=== PATIENT | female | born 2000 | race Caucasian/White ===

== ENCOUNTER → 2018-01-08 | Outpatient (CLI) | payer OTHER ==
[2018-01-08 11:16] LABS: HCT 37.8 % (34.0-46.0); HGB 12.7 gm/dL (11.4-16.0); MCH 30.4 pg (25.0-35.0); MCHC 33.5 g/dL (31.0-37.0); MCV 90.7 fL (80.0-100.0); Mean Platelet Volume 7.6; Platelet Count 268 k/uL (150-450); RBC 4.17 m/uL (3.80-5.40); RDW 13.3 % (11.5-15.5); WBC 8.2 k/uL (4.0-11.0)
--- NOTE | 2018-01-08 11:20 | US ---
EXAMINATION TYPE: Transabdominal DATE OF EXAM: 09/30/17 COMPARISON: NONE CLINICAL HISTORY: Z36 Confirm dates and viability. Dates EXAM PERFORMED: Transabdominal (TA) EXAM MEASUREMENTS: GESTATIONAL AGE / DATING Dates by LMP: (13 weeks/4 days) EDC: 07/12/2018 Dates by Current Scan for: (13 weeks/2 days) EDC: 07/14/2018 MATERNAL ANATOMY Uterus: 12.0 x 1.0 x 1.5 cm Right Ovary: 4.1 x 2.2 x 1.8 cm Left Ovary: 2.9 x 1.8 x 1.1 cm Post CDS / Adnexa: no free fluid Presence of free fluid: no Presence of corpus luteal cyst: right ovarian hypoechoic lesion - 1.7 x 1.4 x 1.2 cm Presence of subchorionic bleed: no GESTATION / SURVEY CRL: 7.1 (13 weeks/2 days) MSD: seen, not measured Yolk Sac (normal less than 6mm): not visualized Heart Rate: 151 bpm Rhythm: Normal IUP: Viable IUP Date of LMP: 10/05/2017, G1 Single live intrauterine gestation is seen as gestational sac and pole are identified. Yolk sac is not clearly seen. No free fluid is seen in pelvic cul-de-sac. Both ovaries are present. Within right ovary there is 1.4 cm isoechoic peripheral lesion felt to refl ect corpus luteal cyst. No suspicious extraovarian adnexal lesions are present. IMPRESSION: Single live intrauterine gestation is confirmed, mean crown-rump length is 7.1 cm corresponding to a 13 week 2 day old fetus.
[2018-01-08 11:22] LABS: Glucose 75 mg/dL (74-99)
[2018-01-08 21:10] LABS: HIV AB P24 Non-Reactive (Non-Reactive); HIV P24 AG Non-Reactive (Non-Reactive)
[2018-01-09 06:55] LABS: Toxoplasma Antibody (IgG) <3.0 IU/mL (<7.2); Toxoplasma Antibody (IgM) <3.0 AU/mL (<8.0)
== END | disposition home or self-care (01) ==
LOC: RADUSWWP 10:38
PROVIDERS: ATTEND Obstetrics & Gynecology
DX: Z36.89 Encounter for other specified antenatal screening (principal); O26.811 Pregnancy related exhaustion and fatigue, first trimester; Z3A.13 13 weeks gestation of pregnancy
CPT/HCPCS: 36415; 76801; 82565; 82947; 85027; 86762; 86777; 86778; 86780; 86850; 86900; 86901; 87340; 87390

== ENCOUNTER → 2018-04-06 | Outpatient (CLI) | payer OTHER ==
[2018-04-06 13:09] VITALS: BP 115/75; PULSE 101; RESP 18; TEMP 98.4
--- NOTE | 2018-04-07 06:21 | P.MSEPDOC ---
Presenting Problems - Arrival Data Date of Arrival on Unit: 04/06/18 Time of Arrival on Unit: 12:10 Mode of Transport: Ambulatory - Complaint OB-Reason for Admission/Chief Complaint: Decreased Movement Medical History - Information : 1 Para: 0 Term: 0 : 0 Abortions: Spontaneous or Elective: 0 Number of Living Children: 0 - Gestational Age Gestational Age by DINO (wks/days): 26 Weeks and 1 Days Review of Systems - Review of Systems Constitutional: No problems Breast: No problems ENT: No problems Cardiovascular: No problems Respiratory: No problems Gastrointestinal: No problems Genitourinary: No problems Musculoskeletal: No problems Neurological: No problems Skin: No problems Vital Signs - Temperature Temperature: 98.4 F Temperature Source: Oral - Pulse Right Brachial Pulse Rate: 101 Pulse Assessment Method: Automatic Cuff - Respirations Respiratory Rate: 18 Oxygen Delivery Method: Room Air O2 Sat by Pulse Oximetry: 99 - Blood Pressure Right Arm Blood Pressure: 115/75 Blood Pressure Mean: 88 Blood Pressure Source: Automatic Cuff Medical Screen Scoring (Pre) - Cervical Exam Dilation: Exam Deferred Effacement: Exam Deferred - Uterine Contractions Frequency: N/A Duration: N/A Intensity: N/A - Maternal Vital Signs Maternal Temperature: N/A Maternal Blood Pressure: N/A Signs of Preeclampsia: N/A Maternal Respirations: N/A - Pain Assessment Pain Scale Used: Numeric (1 - 10) Pain Intensity: 0 Pain Management Goal: 0 - Maternal Trauma Maternal Trauma: N/A - Assessment Baseline FHR: 130 Heart Rate - NICHD Category: Category I (Normal) = 0 Position: N/A Station: N/A - Total Score Total Score (Pre): 0 - Level of Risk Level of Risk: Low (0-5) Physician Notification (Pre) - Physician Notified Physician Notified Date: 04/06/18 Physician Notified Time: 12:40 Physician/Practitioner Notifed:: Skip Spoke With: Skip Cardoza Order Received: Yes - Notification Comment Comment: Order received to discharge home. Disposition - Disposition OB Disposition: Physician follow up in office, Discharge to home, Written follow up instructions reviewed Discharge Date: 04/06/18 Discharge Time: 12:51 I agree with the RN Medical Screening Exam: Yes Risk & Benefit of care provided described in d/c instruction: Yes Diagnosis: DECREASED MOVEMENTS, SECOND TRIMESTER, FETUS 1
== END | disposition home or self-care (01) ==
LOC: FBPOP 12:12
PROVIDERS: ATTEND Obstetrics & Gynecology
DX: O36.8121 Decreased fetal movements, second trimester, fetus 1 (principal); Z3A.26 26 weeks gestation of pregnancy
CPT/HCPCS: 99213

== ENCOUNTER 2018-07-02 00:11 | Outpatient (CLI) | payer OTHER ==
[2018-07-02 01:26] VITALS: RESP 16; TEMP 96.7
[2018-07-02 03:15] VITALS: BP 123/76; PULSE 90
--- NOTE | 2018-07-02 06:07 | P.MSEPDOC ---
Presenting Problems - Arrival Data Date of Arrival on Unit: 07/02/18 Time of Arrival on Unit: 00:11 Mode of Transport: Ambulatory - Complaint OB-Reason for Admission/Chief Complaint: Possible Onset of Labor Medical History - Information : 1 Para: 0 Term: 0 : 0 Abortions: Spontaneous or Elective: 0 Number of Living Children: 0 - Gestational Age Gestational Age by DINO (wks/days): 38 Weeks and 4 Days Review of Systems - Review of Systems Constitutional: No problems Breast: No problems ENT: No problems Cardiovascular: No problems Respiratory: No problems Gastrointestinal: No problems Genitourinary: No problems Musculoskeletal: No problems Neurological: No problems Skin: No problems Vital Signs - Temperature Temperature: 96.7 F Temperature Source: Temporal Artery Scan - Pulse Left Pulse Rate: 90 Pulse Assessment Method: Pulse Oximetry - Respirations Respiratory Rate: 16 Oxygen Delivery Method: Room Air - Blood Pressure Right Arm Blood Pressure: 123/76 Blood Pressure Mean: 91 Blood Pressure Source: Automatic Cuff Medical Screen Scoring (Pre) - Cervical Exam Dilation: 4-7 cm = 2 Effacement: Exam Deferred Membranes: Intact - Uterine Contractions Frequency: N/A Duration: N/A Intensity: N/A - Maternal Vital Signs Maternal Temperature: N/A Maternal Blood Pressure: N/A Maternal Respirations: N/A - Pain Assessment Pain Location and Character: Back Pain Scale Used: Numeric (1 - 10) Pain Intensity: 5 Pain Management Goal: 0 Pain Description: *Acute, Sharp Pain Frequency: Intermittent Pain Duration Units: Minutes Pain Behavior: Vocalization - Maternal Trauma Maternal Trauma: N/A - Assessment Baseline FHR: 125 Heart Rate - NICHD Category: Category I (Normal) = 0 NST: Reactive Position: N/A Station: N/A - Total Score Total Score (Pre): 2 - Level of Risk Level of Risk: Low (0-5) Physician Notification (Pre) - Physician Notified Physician Notified Date: 07/02/18 Physician Notified Time: 01:17 Physician/Practitioner Notifed:: Dr. Valdivia Spoke With: Dr. Valdivia New Order Received: Yes (continue monitoring and recheck in hour) Medical Screen Scoring (Post) - Cervical Exam Dilation: 4-7 cm = 2 Effacement: Exam Deferred Membranes: Intact - Uterine Contractions Frequency: N/A Duration: N/A Intensity: N/A - Maternal Vital Signs Maternal Temperature: N/A Maternal Blood Pressure: N/A Signs of Preeclampsia: N/A Maternal Respirations: N/A - Pain Assessment Pain Location and Character: Back, Abdomen Pain Scale Used: Numeric (1 - 10) Pain Intensity: 6 Pain Management Goal: .0 Pain Description: *Acute, Sharp Pain Frequency: Intermittent Pain Duration Units: Minutes Pain Behavior: Vocalization - Total Score Total Score (Post): 2 - Post Treatment Level of Risk Post Treatment Level of Risk: Low (0-5) Physician Notification (Post) - Physician Notified Physician Notified Date: 07/02/18 Physician Notified Time: 02:32 Physician/Practitioner Notified:: Dr. Valdivia Spoke With: Dr. Valdivia New Order Received: Yes (Discharge home with instructions.) Disposition - Disposition OB Disposition: Discharge to home Discharge Date: 07/02/18 Discharge Time: 02:32 I agree with the RN Medical Screening Exam: Yes Risk & Benefit of care provided described in d/c instruction: Yes Diagnosis: FALSE LABOR AT OR AFTER 37 COMPLETED WEEKS OF GESTATION
== END 2018-07-02 02:30 | disposition home or self-care (01) ==
LOC: FBPOP 00:11
PROVIDERS: ATTEND Obstetrics & Gynecology
DX: O47.1 False labor at or after 37 completed weeks of gestation (principal); Z3A.38 38 weeks gestation of pregnancy
CPT/HCPCS: 59025; G0463; 99213

== ENCOUNTER 2018-07-02 13:49 | Outpatient (CLI) | payer OTHER ==
[2018-07-02 15:51] VITALS: BP 131/80; PULSE 111; RESP 16; TEMP 98.9
--- NOTE | 2018-07-07 18:31 | P.MSEPDOC ---
Presenting Problems - Arrival Data Date of Arrival on Unit: 07/02/18 Time of Arrival on Unit: 14:56 Mode of Transport: Ambulatory - Complaint OB-Reason for Admission/Chief Complaint: Possible Onset of Labor Medical History - Information : 1 Para: 0 Term: 0 : 0 Abortions: Spontaneous or Elective: 0 Number of Living Children: 0 - Gestational Age Gestational Age by DINO (wks/days): 38 Weeks and 4 Days Review of Systems - Review of Systems Constitutional: No problems Breast: No problems ENT: No problems Cardiovascular: No problems Respiratory: No problems Gastrointestinal: No problems Genitourinary: No problems Musculoskeletal: No problems Neurological: No problems Skin: No problems Vital Signs - Temperature Temperature: 98.9 F Temperature Source: Temporal Artery Scan - Pulse Apical Pulse Rate: 111 Pulse Assessment Method: Automatic Cuff - Respirations Respiratory Rate: 16 Oxygen Delivery Method: Room Air - Blood Pressure Right Arm Blood Pressure: 131/80 Blood Pressure Mean: 97 Blood Pressure Source: Automatic Cuff Medical Screen Scoring (Pre) - Cervical Exam Dilation: 4-7 cm = 2 Effacement: Exam Deferred Membranes: Intact - Uterine Contractions Frequency: > 5 minutes apart = 1 Duration: N/A Intensity: N/A - Maternal Vital Signs Maternal Temperature: N/A Maternal Blood Pressure: N/A Signs of Preeclampsia: N/A Maternal Respirations: N/A - Pain Assessment Pain Location and Character: Back, Abdomen Pain Scale Used: Numeric (1 - 10) Pain Intensity: 5 Pain Description: Aching, Burning, Cramping Pain Frequency: Intermittent Pain Behavior: Vocalization Pain Aggravating Factors: Contractions, Position Non-Pharmacological Interventions: Distraction - Maternal Trauma Maternal Trauma: N/A - Assessment Baseline FHR: 130 Heart Rate - NICHD Category: Category I (Normal) = 0 NST: Reactive Position: N/A Station: N/A - Total Score Total Score (Pre): 3 - Level of Risk Level of Risk: Low (0-5) Physician Notification (Pre) - Physician Notified Physician Notified Date: 07/02/18 Physician Notified Time: 15:20 Physician/Practitioner Notifed:: cody Spoke With: cody New Order Received: Yes (evaluate. let walk recheck cervix at 4pm) - Notification Comment Comment: cervix remains unchanged. home with instructions. Disposition - Disposition OB Disposition: Discharge to home, Written follow up instructions reviewed Discharge Date: 07/02/18 Discharge Time: 16:45 I agree with the RN Medical Screening Exam: Yes Risk & Benefit of care provided described in d/c instruction: Yes Diagnosis: FALSE LABOR AT OR AFTER 37 COMPLETED WEEKS OF GESTATION
== END 2018-07-02 16:45 | disposition home or self-care (01) ==
LOC: FBPOP 13:49
PROVIDERS: ATTEND Obstetrics & Gynecology
DX: O47.1 False labor at or after 37 completed weeks of gestation (principal); Z3A.38 38 weeks gestation of pregnancy
CPT/HCPCS: 59025; G0463; 99213

== ENCOUNTER 2018-07-06 16:48 | Inpatient (IN) | payer OTHER ==
[2018-07-06] MEDS: LACTATED RINGERS 1,000 ML IV SCH ×5 (19:28→23:14)
[2018-07-06] MEDS ORDERED: CARBOPROST TROMETHAMINE 250 MCG/ML 1 ML AMP IM PRN (20:22)
[2018-07-06] MEDS ORDERED: LIDOCAINE 0.5% (PF) 5 MG/ML (50 ML SDV) SQ PRN (20:22)
[2018-07-06] MEDS ORDERED: OXYTOCIN 10 UNIT/ML 1 ML VIAL IM PRN (20:22)
[2018-07-06] MEDS ORDERED: TERBUTALINE 1 MG/ML VIAL SQ PRN (20:22)
[2018-07-06] MEDS ORDERED: METHYLERGONOVINE 0.2 MG/ML 1 ML AMP IM PRN (20:22)
[2018-07-06 20:55] VITALS: BMI 30.9
[2018-07-06 20:59] LABS: Basophils % (A) 0 %; Eosinophils % (A) 0 %; HCT 34.2 % (34.0-46.0); HGB 11.4 gm/dL (11.4-16.0); Lymphocytes # (A) 1.4 k/uL (1.0-4.8); Lymphocytes % (A) 14 %; MCH 28.7 pg (25.0-35.0); MCHC 33.3 g/dL (31.0-37.0); MCV 86.2 fL (80.0-100.0); Mean Platelet Volume 9.4; Monocytes # (A) 0.4 k/uL (0-1.0); Monocytes % (A) 4 %; Neutrophils # (A) 8.1 k/uL (1.3-7.7); Neutrophils % (A) 81 %; Platelet Count 231 k/uL (150-450); RBC 3.96 m/uL (3.80-5.40); RDW 14.9 % (11.5-15.5)
[2018-07-06] MEDS ORDERED: OXYTOCIN 20 UNITS/1000 ML NS 1,000 ML IV SCH (21:30)
--- NOTE | 2018-07-06 22:31 | P.HPOB ---
History of Present Illness H&P Date: 07/06/18 Chief Complaint: Contractions This is a 17-year-old female 1 para 0 with an estimated date of confinement of 07/12/2018, estimated gestational age of 39 and one sevenths weeks, who presents to labor and delivery with complaints of contractions that became stronger today. care has been with Dr. Valdivia and has been uncomplicated per patient. She denies any rupture of membranes. She has been feeling good movement. labs: GC/chlamydia-negative Hepatitis B surface antigen-nonreactive Rubella-nonimmune Syphilis antibody-nonreactive Random glucose-75 Hemoglobin-12.7 Blood type-A+ Antibody screen-negative One hour Glucola-77 Group B streptococcus-negative Obstetrical history: . Gynecologic history: No history of STDs. Social history: She is single. 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 Review of Systems Constitutional: Denies chills, Denies fever Eyes: denies blurred vision, denies pain Ears, nose, mouth and throat: Denies headache, Denies sore throat Cardiovascular: Denies chest pain, Denies shortness of breath Respiratory: Denies cough Gastrointestinal: Reports abdominal pain Genitourinary: Reports pelvic pain, Reports Musculoskeletal: Reports low back pain Integumentary: Denies pruritus, Denies rash Neurological: Denies numbness, Denies weakness Psychiatric: Denies anxiety, Denies depression Past Medical History Past Medical History: No Reported History History of Any Multi-Drug Resistant Organisms: None Reported Past Surgical History: No Surgical Hx Reported Past Anesthesia/Blood Transfusion Reactions: No Reported Reaction Past Psychological History: No Psychological Hx Reported Smoking Status: Never smoker Past Alcohol Use History: None Reported Past Drug Use History: None Reported - Past Family History Mother Family Medical History: No Reported History Medications and Allergies Home Medications Medication Instructions Recorded Confirmed Type Pnv No.95/Ferrous Fum/Folic AC 1 tab PO DAILY 07/02/18 07/06/18 History [ Multivitamin Tablet] Allergies Allergy/AdvReac Type Severity Reaction Status Date / Time Penicillins Allergy Unknown Verified 07/06/18 17:15 Childhood Exam Osteopathic Statement: *. No significant issues noted on an osteopathic structural exam other than those noted in the History and Physical/Consult. Vital Signs Temp Pulse Resp BP 07/06/18 20:21 97.0 F L 92 16 127/83 07/06/18 20:10 97.0 F L 92 16 127/83 07/06/18 17:24 97.6 F 120 H 16 132/86 Intake and Output 07/06/18 07/06/18 07/06/18 06:59 14:59 22:59 Other: Weight 79.379 kg HEENT: Heart: Regular rate and rhythm Lungs: Clear to auscultation bilaterally Abdomen: Cervix: Initially was 5 cm on admission to triage. She did make a half a centimeter change per hour until she was 6-1/2 cm. At this point she was considered in active labor and was admitted. Cervix was 80% effaced and -2 station. heart tones: Reactive Contractions: Irregular anywhere from 2-6 minutes apart Extremities: Negative Homans Results Result Diagrams: 07/06/18 19:30 Abnormal Lab Results - Last 24 Hours (Table) 07/06/18 Range/Units 19:30 Neutrophils # 8.1 H (1.3-7.7) k/uL Assessment and Plan (1) 39 weeks gestation of Current Visit: Yes Status: Acute Code(s): Z3A.39 - 39 WEEKS GESTATION OF SNOMED Code(s): 24843752 Plan: Admission for early active labor. Oxytocin augmentation of labor if necessary. Epidural anesthesia if desired.
[2018-07-06] MEDS ORDERED: SODIUM CHLORIDE 0.9% 100 ML BAG ONE (22:45)
[2018-07-06] MEDS ORDERED: fentaNYL (PF) 50 MCG/ML 5 ML AMP ONE (22:45)
[2018-07-06] MEDS ORDERED: ROPIVACAINE 5MG/ML 20ML VIAL ONE (22:45)
[2018-07-07] MEDS ORDERED: diphenhydrAMINE 50 MG/ML 1 ML VIAL IVP PRN ×2 (04:24)
[2018-07-07] MEDS ORDERED: OXYTOCIN 20 UNITS/1000 ML NS 1,000 ML IV SCH (04:24)
[2018-07-07] MEDS ORDERED: BENZOCAINE/MENTHOL SPRAY 1 GM/SPRAY AEROSOL TOPICAL PRN (04:24)
[2018-07-07] MEDS ORDERED: MEASLES-MUMPS-RUBELLA VACC/PF 12,500 UNIT/0.5 ML VIAL SQ ONE (04:24)
[2018-07-07] MEDS ORDERED: diphenhydrAMINE 25 MG CAP PO PRN (04:24)
[2018-07-07] MEDS ORDERED: LANOLIN CREAM 5 GM TUBE TOPICAL PRN (04:24)
[2018-07-07] MEDS ORDERED: diphenhydrAMINE 50 MG CAP PO PRN (04:24)
[2018-07-07] MEDS ORDERED: SIMETHICONE 80 MG CHEWABLE PO PRN (04:24)
[2018-07-07] MEDS ORDERED: WITCH HAZEL 1 EACH MED..PAD TOPICAL PRN (04:24)
[2018-07-07] MEDS ORDERED: ACETAMINOPHEN TAB 325 MG TAB PO PRN (04:24)
[2018-07-07] MEDS ORDERED: HYDROCORTISONE 2.5% RECTAL CREAM 30 GM TUBE RECTAL PRN (04:24)
[2018-07-07] MEDS ORDERED: ZOLPIDEM 5 MG TAB PO PRN (04:24)
--- NOTE | 2018-07-07 04:33 | P.PROBDLV ---
Vaginal Delivery Note - . Vaginal Delivery Note: The patient slowly progressed to complete dilation after oxytocin augmentation of labor and artificial rupture membranes with clear fluid noted. She did receive Epidural anesthesia. Once reaching complete dilation, she was unable to push very effectively and therefore her epidural was turned off and she labored down. When she had a strong urge to push, she began pushing. Infant's head came to a crown. With one further push, the infant's head delivered across the perineum followed by the anterior shoulder. Nuchal times one was reduced around the infant's head and with one further push the remainder the easily delivered and was placed on mother's abdomen. Nose and mouth were bulb suctioned after delivery. Cord was clamped and cut. A viable male infant was noted with scores of 9 at 1 minute and 9 at 5 minutes and infant weight of 7 lbs. 3 oz. Placenta delivered shortly thereafter, intact, with a three-vessel cord. Uterus contracted well after oxytocin was given and uterine massage was given. Inspection of the perineum revealed a partial third- degree laceration. This area was anesthetized with 1% lidocaine and then sutured with 3-0 and 2-0 Vicryl suture in the usual multilayer fashion. Estimated blood loss is approximately 200 mL's. Both mother and are in stable condition at this time.
--- NOTE | 2018-07-07 04:33 | P.MSEPDOC ---
Presenting Problems - Arrival Data Date of Arrival on Unit: 07/06/18 Time of Arrival on Unit: 20:10 Mode of Transport: Ambulatory - Complaint OB-Reason for Admission/Chief Complaint: Possible Onset of Labor Medical History - Information : 1 Para: 0 Term: 0 : 0 Abortions: Spontaneous or Elective: 0 Number of Living Children: 0 - Gestational Age Gestational Age by DINO (wks/days): 39 Weeks and 1 Days Review of Systems - Review of Systems Constitutional: No problems Breast: No problems ENT: No problems Cardiovascular: No problems Respiratory: No problems Gastrointestinal: No problems Genitourinary: No problems Musculoskeletal: No problems Neurological: No problems Skin: No problems Vital Signs - Temperature Temperature: 97.0 F Temperature Source: Temporal Artery Scan - Pulse Right Brachial Pulse Rate: 92 Pulse Assessment Method: Automatic Cuff - Respirations Respiratory Rate: 16 Oxygen Delivery Method: Room Air - Blood Pressure Right Arm Blood Pressure: 127/83 Blood Pressure Mean: 97 Blood Pressure Source: Automatic Cuff Medical Screen Scoring (Pre) - Cervical Exam Dilation: 4-7 cm = 2 Effacement: More than 50% = 2 Membranes: Intact - Uterine Contractions Frequency: > 5 minutes apart = 1 Duration: > 40 seconds = 2 Intensity: N/A - Maternal Vital Signs Maternal Temperature: N/A Maternal Blood Pressure: N/A Signs of Preeclampsia: N/A Maternal Respirations: N/A - Pain Assessment Pain Location and Character: Abdomen Pain Scale Used: Numeric (1 - 10) Pain Intensity: 8 Pain Management Goal: 4 Pain Description: *Acute Pain Radiation Location: na Pain Frequency: Intermittent Pain Duration: 2 Pain Duration Units: Minutes Pain Behavior: Vocalization Pain Aggravating Factors: None - Maternal Trauma Maternal Trauma: N/A - Assessment Baseline FHR: 145 Heart Rate - NICHD Category: Category I (Normal) = 0 NST: Reactive Position: N/A Station: N/A - Total Score Total Score (Pre): 7 - Level of Risk Level of Risk: Medium (6-9) Physician Notification (Pre) - Physician Notified Physician Notified Date: 07/06/18 Physician Notified Time: 17:20 Physician/Practitioner Notifed:: Dr. Hernandez Spoke With: Dr. Hernandez New Order Received: Yes - Notification Comment Comment: recheck in one hour Medical Screen Scoring (Post) - Cervical Exam Dilation: 4-7 cm = 2 Effacement: More than 50% = 2 Membranes: Intact - Uterine Contractions Frequency: > or = 36 weeks =2 Duration: > 40 seconds = 2 Intensity: N/A - Maternal Vital Signs Maternal Temperature: N/A Maternal Blood Pressure: N/A Signs of Preeclampsia: N/A Maternal Respirations: N/A - Maternal Trauma Maternal Trauma: N/A - Assessment Heart Rate: 135 Heart Rate - NICHD Category: Category I (Normal) = 0 NST: Reactive Position: N/A Station: N/A - Total Score Total Score (Post): 8 - Post Treatment Level of Risk Post Treatment Level of Risk: Medium (6-9) Physician Notification (Post) - Physician Notified Physician Notified Date: 07/06/18 Physician Notified Time: 20:10 Physician/Practitioner Notified:: Dr. Hernandez New Order Received: Yes - Notification Comment Comment: Patient admitted for labor at this time, patient may have an epidural or stadol for pain if and when wanted, physician would like patient to be rechecked in one hour and called back with status. Disposition - Disposition OB Disposition: Admit Transferred to:: [address] I agree with the RN Medical Screening Exam: Yes Risk & Benefit of care provided described in d/c instruction: Yes Diagnosis: ENCOUNTER FOR FULL-TERM UNCOMPLICATED DELIVERY
[2018-07-07] MEDS: IBUPROFEN 600 MG TAB PO PRN ×3 (04:37→19:21)
[2018-07-07 05:45] LABS: Basophils % (A) 0 %; Eosinophils % (A) 0 %; HCT 29.1 % (34.0-46.0); Lymphocytes # (A) 0.8 k/uL (1.0-4.8); Lymphocytes % (A) 4 %; MCH 28.7 pg (25.0-35.0); MCHC 33.1 g/dL (31.0-37.0); MCV 86.7 fL (80.0-100.0); Mean Platelet Volume 9.9; Monocytes # (A) 0.8 k/uL (0-1.0); Monocytes % (A) 4 %; Neutrophils # (A) 17.8 k/uL (1.3-7.7); Neutrophils % (A) 91 %; Platelet Count 218 k/uL (150-450); RBC 3.35 m/uL (3.80-5.40); RDW 14.9 % (11.5-15.5); WBC 19.5 k/uL (4.0-11.0)
[2018-07-07 05:50] LABS: HGB 9.6 gm/dL (11.4-16.0)
[2018-07-07] MEDS: SENNOSIDES-DOCUSATE SODIUM 1 EACH TAB PO SCH ×2 (07:54→19:21)
--- NOTE | 2018-07-08 06:52 | P.PNOBGVD ---
Subjective - Subjective Patient reports: Reports appetite normal, Reports voiding normally, Reports pain well controlled, Reports ambulating normally : doing well Objective - Latest Vital Signs Latest vital signs: Vital Signs Temp Pulse Resp BP Pulse Ox 07/07/18 15:30 97.7 F 94 16 122/72 07/07/18 12:00 98.8 F 89 16 110/66 07/07/18 08:00 98.6 F 103 H 16 109/61 96 Intake and Output 07/07/18 07/07/18 07/08/18 14:59 22:59 06:59 Intake Total 400 Balance 400 Intake: Intake, IV Titration 400 Amount Oxytocin 20 Units/1000 ml 400 Ns 1,000 ml @ Per Protocol IV .Q0M [facility] Rx#: [id number] Other: # Voids 1 2 - Exam Lungs: bilateral: normal Chest: Normal S1, Normal S2 Extremities: Present: normal Abdomen: Present: normal appearance, soft Uterus: Present: normal, firm Assessment and Plan Assessment: Post day #1. Patient is resting without complaints wishes to go home. Vital signs are stable she's afebrile. Uterus is firm nontender and she is having normal lochia. My impression this is a normal course. Plan is to continue routine care discharge home later today.
--- NOTE | 2018-07-08 06:56 | P.DS ---
Providers Date of admission: 07/06/18 20:12 Expected date of discharge: 07/08/18 Attending physician: Sathish Valdivia Primary care physician: Sathish Valdivia [facility] Course: Please see dictated H&P for intimate details of this patient's admission. Brief summary is a pleasant 17-year-old 1 para 0 female 39 weeks gestation who is admitted to labor and delivery in active labor. Patient's subsequent goes on have a vaginal delivery viable male infant. Please see dictated delivery note. day #1 patient is without complaints wishes to go home. Patient's felt be stable for discharge home follow up with me in 6 weeks. Procedures: Normal spontaneous vaginal delivery Patient Condition at Discharge: Good Plan - Discharge Summary New Discharge Prescriptions: New Ibuprofen [Motrin] 600 mg PO Q6HR PRN #40 tab PRN Reason: Mild Pain Or Fever >= 100.5 No Action Pnv No.95/Ferrous Fum/Folic AC [ Multivitamin Tablet] 1 tab PO DAILY Discharge Medication List Pnv No.95/Ferrous Fum/Folic AC [ Multivitamin Tablet] 1 tab PO DAILY 09/15 [History] Ibuprofen [Motrin] 600 mg PO Q6HR PRN #40 tab 07/08/18 [Rx] Follow up Appointment(s)/Referral(s): Sathish Valdivia MD [Primary Care Provider] - 08/18/18 3:15 pm Patient Instructions/Handouts: Vaginal Delivery (DC) Activity/Diet/Wound Care/Special Instructions: No intercourse or anything per vagina for 6 weeks. Please call if any fever, chills, excessive vaginal bleeding, and/or abdominal pain. Discharge Disposition: HOME SELF-CARE
[2018-07-08] MEDS: IBUPROFEN 600 MG TAB PO PRN (07:43)
[2018-07-08] MEDS: SENNOSIDES-DOCUSATE SODIUM 1 EACH TAB PO SCH (07:43)
[2018-07-08 09:11] VITALS: BP 121/69; PULSE 95; RESP 18; TEMP 98.3
--- NOTE | 2018-07-10 08:12 | CDI ---
Documentation Clarification Form Date: 07/10/18 From: Bonnie Dhruv Gaby Norris, Academic Adviser Hours-8:30 am & 5 pm Zakiya Admit Date: 07/06/2018 8:12:00 PM Patient Name: Margarita Tavares Visit Number: [id number] Discharge Date: 07/08/2018 11:38:00 AM ATTENTION: The Clinical Documentation Specialists (CDI) and [facility] Coding Staff appreciate your assistance in clarifying documentation. Please respond to the clarification below the line at the bottom and electronically sign. The CDI & [facility] Coding staff will review the response and follow-up if needed. Please note: Queries are made part of the Legal Health Record. If you have any questions, please contact the author of this message via ITS. Dr. Ying Hernandez A woman, 39 weeks gestation admitted in active labor. She had a manually assisted vaginal delivery of a normal . The patient suffered a partial third degree laceration which was repaired with 3-0 and 2-0 Vicryl suture in the usual multilayer fashion. In your professional opinion, did the third degree laceration involve: *Injury to perineal skin only *Injury to perineum involving perineal muscles but not involving anal sphincter *Injury to perineum involving anal sphincter complex *Less than 50% of external anal sphincter (EAS) thickness torn *More than 50% of external anal sphincter (EAS) thickness torn *Both external anal sphincter (EAS) and internal anal sphincter (IAS) torn *Injury to perineum involving anal sphincter complex (external anal sphincter ( EAS) and internal anal sphincter (IAS) and anal epithelium *Other, please specify *Clinically unable to determine _ The injury involved the perineal muscles but does not involve the anal sphincter and involve less than 50% of the anal sphincter muscle. MTDD
== END 2018-07-08 11:38 | disposition home or self-care (01) | DRG 768 ==
LOC: FBPOP 16:48 → 4FBP 20:12
PROVIDERS: ADMIT Obstetrics & Gynecology; ATTEND Obstetrics & Gynecology
PROC: 00HU33Z Insertion of Infusion Device into Spinal Canal, Percutaneous Approach (ICD-10-PCS; 2018-07-06)
PROC: 3E0R3BZ Introduction of Anesthetic Agent into Spinal Canal, Percutaneous Approach (ICD-10-PCS; 2018-07-06)
PROC: 10E0XZZ Delivery of Products of Conception, External Approach (ICD-10-PCS; principal; 2018-07-07)
PROC: 3E0134Z Introduction of Serum, Toxoid and Vaccine into Subcutaneous Tissue, Percutaneous Approach (ICD-10-PCS; 2018-07-07)
PROC: 0DQR0ZZ Repair Anal Sphincter, Open Approach (ICD-10-PCS; 2018-07-07)
DX: O69.81X0 Labor and delivery complicated by cord around neck, without compression, not applicable or unspecified (principal); Z37.0 Single live birth; O70.21 Third degree perineal laceration during delivery, IIIa; Z3A.39 39 weeks gestation of pregnancy; Z23 Encounter for immunization; Z79.899 Other long term (current) drug therapy; Z88.0 Allergy status to penicillin
CPT/HCPCS: 59025; 85025; 86850; 86900; 86901; 90471; 90707; 99213

== ENCOUNTER → 2019-03-10 | Outpatient (CLI) | payer OTHER ==
--- NOTE | 2019-03-10 11:55 | US ---
EXAM PERFORMED: US OB <= 14 WEEKS EXAMINATION TYPE: Transabdominal DATE OF EXAM: 03/10/2019 11:07 AM COMPARISON: NONE GESTATIONAL AGE / DATING CLINICAL HISTORY: Z36 CONFIRM DATES. EXAM MEASUREMENTS: GESTATIONAL AGE / DATING Physician Established: Not yet established Dates by LMP: (13 weeks/3 days) EDC: 09/11/2018 Dates by First Scan: no prior Dates by Current Scan for: iup (13 weeks/0 days) EDC: 09/15/2019 MATERNAL ANATOMY Uterus: 10.9 x 7.7 x 9.7 cm Right Ovary: 2.9 x 1.4 x 2.1 cm Left Ovary: 2.2 x 1.3 x 2.3 cm Post CDS / Adnexa: wnl Presence of free fluid: no Presence of corpus luteal cyst: no Presence of subchorionic bleed: no GESTATION / SURVEY CRL: 6.2 (12 weeks/4 days) BPD: 2.1 (13 weeks/3 days) Heart Rate: 143 bpm Rhythm: Normal IUP: Live IUP Date of LMP: 12/06/2018 IMPRESSION: Single live intrauterine has a calculated sonographic age of 13 weeks and 0 day s and estimated date of delivery of 09/15/2019, concordant with menstrual age.
[2019-03-10 12:00] LABS: HCT 38.7 % (34.0-46.0); HGB 12.9 gm/dL (11.4-16.0); MCHC 33.3 g/dL (31.0-37.0); MCV 87.1 fL (80.0-100.0); Mean Platelet Volume 7.4; Platelet Count 297 k/uL (150-450); RBC 4.44 m/uL (3.80-5.40); RDW 14.3 % (11.5-15.5); WBC 8.4 k/uL (4.0-11.0)
[2019-03-10 12:10] LABS: African American GFR (CKD) >90 (>60 ml/min/1.73 sqM); Glucose 76 mg/dL (74-99)
[2019-03-10 17:43] LABS: HIV 1 AB Non-Reactive (Non-Reactive); HIV AB P24 Non-Reactive (Non-Reactive); HIV P24 AG Non-Reactive (Non-Reactive)
== END | disposition home or self-care (01) ==
LOC: RADUSWWP 10:45
PROVIDERS: ATTEND Obstetrics & Gynecology
DX: Z34.81 Encounter for supervision of other normal pregnancy, first trimester (principal); Z3A.13 13 weeks gestation of pregnancy
CPT/HCPCS: 36415; 76801; 82565; 82947; 85027; 86762; 86780; 86850; 86900; 86901; 87340; 87390

== ENCOUNTER 2019-06-09 08:51 | Outpatient (CLI) | payer OTHER ==
[2019-06-09 11:50] VITALS: BP 129/67; PULSE 110; RESP 16; TEMP 97.4
--- NOTE | 2019-06-10 06:07 | P.MSEPDOC ---
Presenting Problems - Arrival Data Date of Arrival on Unit: 06/09/19 Time of Arrival on Unit: 08:50 Mode of Transport: Ambulatory - Complaint OB-Reason for Admission/Chief Complaint: Rule Out SROM Medical History - Information : 2 Para: 1 Term: 1 : 0 Abortions: Spontaneous or Elective: 0 Number of Living Children: 1 - Gestational Age Gestational Age by DINO (wks/days): 26 Weeks and 3 Days Review of Systems - Review of Systems Constitutional: No problems Breast: No problems ENT: No problems Cardiovascular: No problems Respiratory: No problems Gastrointestinal: No problems Genitourinary: No problems Musculoskeletal: No problems Neurological: No problems Skin: No problems Vital Signs - Temperature Temperature: 97.4 F Temperature Source: Tympanic - Pulse Right Brachial Pulse Rate: 110 Pulse Assessment Method: Automatic Cuff - Respirations Respiratory Rate: 16 Oxygen Delivery Method: Room Air - Blood Pressure Right Arm Blood Pressure: 129/67 Blood Pressure Mean: 87 Blood Pressure Source: Automatic Cuff Medical Screen Scoring (Pre) - Cervical Exam Dilation: Exam Deferred Effacement: Exam Deferred Membranes: Intact - Uterine Contractions Frequency: N/A Duration: N/A Intensity: N/A - Maternal Vital Signs Maternal Temperature: N/A Maternal Blood Pressure: N/A Signs of Preeclampsia: N/A Maternal Respirations: N/A - Maternal Trauma Maternal Trauma: N/A - Assessment - Baby A Baseline FHR: 135 Heart Rate - NICHD Category: Category I (Normal) = 0 NST: Reactive Position: N/A Station: N/A - Total Score - Baby A Total Score - Baby A: 0 - Total Score - Baby B Total Score - Baby B: 0 - Total Score - Baby C Total Score - Baby C: 0 - Level of Risk - Baby A Level of Risk - Baby A: Low (0-5) - Level of Risk - Baby B Level of Risk - Baby B: Low (0-5) - Level of Risk - Baby C Level of Risk - Baby C: Low (0-5) Physician Notification (Pre) - Physician Notified Physician Notified Date: 06/09/19 Physician Notified Time: 09:40 New Order Received: Yes - Notification Comment Comment: d/c home Disposition - Disposition OB Disposition: Discharge to home Discharge Date: 06/09/19 Discharge Time: 09:47 I agree with the RN Medical Screening Exam: Yes Risk & Benefit of care provided described in d/c instruction: Yes Diagnosis: FALSE LABOR BEFORE 37 COMPLETED WEEKS OF GEST, THIRD TRI
== END 2019-06-09 09:50 | disposition home or self-care (01) ==
LOC: FBPOP 08:51
PROVIDERS: ATTEND Obstetrics & Gynecology
DX: O47.02 False labor before 37 completed weeks of gestation, second trimester (principal); Z3A.26 26 weeks gestation of pregnancy
CPT/HCPCS: 84112; G0463; 99213

== ENCOUNTER 2019-07-04 14:00 | Outpatient (CLI) | payer OTHER ==
[2019-07-04] MEDS ORDERED: ONDANSETRON 4 MG/2 ML VIAL IVP STA (14:46)
[2019-07-04] MEDS: LACTATED RINGERS 1,000 ML IV SCH ×2 (14:54→15:22)
[2019-07-04 15:09] VITALS: TEMP 96.3
[2019-07-04 15:47] VITALS: BP 114/61; PULSE 92; RESP 16
--- NOTE | 2019-07-13 17:07 | P.MSEPDOC ---
Presenting Problems - Arrival Data Date of Arrival on Unit: 07/04/19 Time of Arrival on Unit: 14:00 Mode of Transport: Ambulatory - Complaint OB-Reason for Admission/Chief Complaint: Acute Nausea/Vomiting Medical History - Information : 2 Para: 1 Term: 1 : 0 Abortions: Spontaneous or Elective: 0 Number of Living Children: 1 - Gestational Age Gestational Age by DINO (wks/days): 30 Weeks and 0 Days Review of Systems - Review of Systems Constitutional: No problems Breast: No problems ENT: No problems Cardiovascular: No problems Respiratory: No problems Gastrointestinal: Pain Genitourinary: No problems Musculoskeletal: No problems Neurological: No problems Skin: No problems Vital Signs - Temperature Temperature: 96.3 F Temperature Source: Tympanic - Pulse Right Brachial Pulse Rate: 92 Pulse Assessment Method: Automatic Cuff - Respirations Respiratory Rate: 16 Oxygen Delivery Method: Room Air - Blood Pressure Right Arm Blood Pressure: 114/61 Blood Pressure Mean: 78 Blood Pressure Source: Automatic Cuff Medical Screen Scoring (Pre) - Cervical Exam Dilation: Exam Deferred Effacement: Exam Deferred Membranes: Intact - Uterine Contractions Frequency: > 5 minutes apart = 1 Duration: N/A Intensity: N/A - Maternal Vital Signs Maternal Temperature: N/A Maternal Blood Pressure: N/A Signs of Preeclampsia: N/A Maternal Respirations: N/A - Maternal Trauma Maternal Trauma: N/A - Total Score - Baby A Total Score - Baby A: 1 - Total Score - Baby B Total Score - Baby B: 1 - Total Score - Baby C Total Score - Baby C: 1 - Level of Risk - Baby A Level of Risk - Baby A: Low (0-5) - Level of Risk - Baby B Level of Risk - Baby B: Low (0-5) - Level of Risk - Baby C Level of Risk - Baby C: Low (0-5) Physician Notification (Pre) - Physician Notified Physician Notified Date: 07/04/19 Physician Notified Time: 14:30 New Order Received: Yes - Notification Comment Comment: IV hydrate, zofran Medical Screen Scoring (Post) - Cervical Exam Dilation: Exam Deferred Effacement: Exam Deferred Membranes: Intact - Uterine Contractions Frequency: N/A Duration: N/A Intensity: N/A - Maternal Vital Signs Maternal Temperature: N/A Signs of Preeclampsia: N/A Maternal Respirations: N/A - Pain Assessment Pain Location and Character: Abdomen Pain Scale Used: Numeric (1 - 10) Pain Intensity: 4 Pain Management Goal: 2 Pain Description: *Acute Pain Radiation Location: na Pain Duration: 6 Pain Duration Units: Hours Pain Behavior: Vocalization Pain Aggravating Factors: None - Maternal Trauma Maternal Trauma: N/A - Assessment - Baby A Heart Rate: 145 Heart Rate - NICHD Category: Category I (Normal) = 0 NST: Reactive Position: N/A Station: N/A - Total Score Total Score - Baby A: 0 Total Score - Baby B: 0 Total Score - Baby C: 0 - Post Treatment Level of Risk Post Treatment Level of Risk - Baby A: Low (0-5) Physician Notification (Post) - Physician Notified Physician Notified Date: 07/04/19 Physician Notified Time: 15:30 Physician/Practitioner Notified:: Dr. Torres Spoke With: Dr. Torres New Order Received: Yes - Notification Comment Comment: d/c home Disposition - Disposition OB Disposition: Discharge to home Discharge Date: 07/04/19 Discharge Time: 15:30 I agree with the RN Medical Screening Exam: Yes Risk & Benefit of care provided described in d/c instruction: Yes Diagnosis: VOMITING OF , UNSPECIFIED
== END 2019-07-04 15:30 | disposition home or self-care (01) ==
LOC: FBPOP 14:00
PROVIDERS: ATTEND Obstetrics & Gynecology
DX: O21.2 Late vomiting of pregnancy (principal); Z3A.30 30 weeks gestation of pregnancy
CPT/HCPCS: 59025; 96360; G0463; J2405; 99214

== ENCOUNTER 2019-08-29 18:59 | Outpatient (CLI) | payer OTHER ==
[2019-08-29 21:11] VITALS: BP 145/87; PULSE 105; RESP 16; TEMP 98
--- NOTE | 2019-08-30 00:32 | P.MSEPDOC ---
Presenting Problems - Arrival Data Date of Arrival on Unit: 08/29/19 Time of Arrival on Unit: 18:59 Mode of Transport: Ambulatory - Complaint OB-Reason for Admission/Chief Complaint: Pain Comment: Back pain since yesterday, 11/06 pain Medical History - Information : 2 Para: 1 Term: 1 : 0 Abortions: Spontaneous or Elective: 0 Number of Living Children: 1 - Gestational Age Gestational Age by DINO (wks/days): 38 Weeks and 0 Days Review of Systems - Review of Systems Constitutional: No problems Breast: No problems ENT: No problems Cardiovascular: No problems Respiratory: No problems Gastrointestinal: No problems Genitourinary: No problems Musculoskeletal: No problems Neurological: No problems Skin: No problems Vital Signs - Temperature Temperature: 98 F Temperature Source: Oral - Pulse Right Brachial Pulse Rate: 105 Pulse Assessment Method: Automatic Cuff - Respirations Respiratory Rate: 16 Oxygen Delivery Method: Room Air O2 Sat by Pulse Oximetry: 100 - Blood Pressure Right Arm Blood Pressure: 145/87 Blood Pressure Mean: 106 Blood Pressure Source: Automatic Cuff Medical Screen Scoring (Pre) - Cervical Exam Dilation: 1-3 cm = 1 Effacement: More than 50% = 2 - Uterine Contractions Frequency: > or = 36 weeks =2 Duration: > 40 seconds = 2 Intensity: N/A - Maternal Vital Signs Maternal Temperature: N/A Signs of Preeclampsia: N/A Maternal Respirations: N/A - Maternal Trauma Maternal Trauma: N/A - Assessment - Baby A Baseline FHR: 135 Heart Rate - NICHD Category: Category I (Normal) = 0 NST: Reactive Position: N/A Station: N/A - Total Score - Baby A Total Score - Baby A: 7 - Total Score - Baby B Total Score - Baby B: 7 - Total Score - Baby C Total Score - Baby C: 7 - Level of Risk - Baby A Level of Risk - Baby A: Medium (6-9) - Level of Risk - Baby B Level of Risk - Baby B: Medium (6-9) - Level of Risk - Baby C Level of Risk - Baby C: Medium (6-9) Physician Notification (Pre) - Physician Notified Physician Notified Date: 08/29/19 Physician Notified Time: 20:17 - Notification Comment Comment: Reported vag exam 2.5/80/-2 no change after one hour. Bps 145/87, 124/81 and 118/73. Orders for serial bps for one hour and then d/c pt home. Disposition - Disposition OB Disposition: Discharge to home, Written follow up instructions reviewed Discharge Date: 08/29/19 Discharge Time: 21:10 I agree with the RN Medical Screening Exam: Yes Risk & Benefit of care provided described in d/c instruction: Yes Diagnosis: FALSE LABOR AT OR AFTER 37 COMPLETED WEEKS OF GESTATION
== END 2019-08-29 21:10 | disposition home or self-care (01) ==
LOC: FBPOP 18:59
PROVIDERS: ATTEND Obstetrics & Gynecology
DX: O47.1 False labor at or after 37 completed weeks of gestation (principal); Z3A.38 38 weeks gestation of pregnancy
CPT/HCPCS: 59025; G0463; 99213

== ENCOUNTER 2019-09-04 20:00 | Outpatient (CLI) | payer OTHER ==
[2019-09-04 20:12] VITALS: BP 123/78; RESP 16
[2019-09-04 21:49] VITALS: PULSE 97; TEMP 98.2
--- NOTE | 2019-09-20 15:41 | P.MSEPDOC ---
Presenting Problems - Arrival Data Date of Arrival on Unit: 09/04/19 Time of Arrival on Unit: 20:00 Mode of Transport: Ambulatory - Complaint OB-Reason for Admission/Chief Complaint: Possible Onset of Labor Comment: Patient presents to triage with contractions that started around 0900 this am, but have increased in frequency approximately 3 hours ago. States they are not painful contractions, but feel more like a pinching in her vagina. Medical History - Information : 2 Para: 1 Term: 1 : 0 Abortions: Spontaneous or Elective: 0 Number of Living Children: 1 - Gestational Age Gestational Age by DINO (wks/days): 38 Weeks and 6 Days Review of Systems - Review of Systems Constitutional: No problems Breast: No problems ENT: No problems Cardiovascular: No problems Respiratory: No problems Gastrointestinal: No problems Genitourinary: No problems Musculoskeletal: No problems Neurological: No problems Skin: No problems Vital Signs - Temperature Temperature: 98.2 F Temperature Source: Temporal Artery Scan - Pulse Right Brachial Pulse Rate: 97 Pulse Assessment Method: Pulse Oximetry - Respirations Respiratory Rate: 16 Oxygen Delivery Method: Room Air - Blood Pressure Right Arm Blood Pressure: 123/78 Blood Pressure Mean: 93 Blood Pressure Source: Manual Cuff/Auscultation Medical Screen Scoring (Pre) - Cervical Exam Dilation: 4-7 cm = 2 Effacement: More than 50% = 2 Membranes: Intact - Uterine Contractions Frequency: > or = 36 weeks =2 Duration: > 40 seconds = 2 Intensity: N/A - Maternal Vital Signs Maternal Temperature: N/A Maternal Blood Pressure: N/A Signs of Preeclampsia: N/A Maternal Respirations: N/A - Maternal Trauma Maternal Trauma: N/A - Assessment - Baby A Baseline FHR: 130 Heart Rate - NICHD Category: Category I (Normal) = 0 NST: Reactive Position: N/A Station: N/A - Total Score - Baby A Total Score - Baby A: 8 - Total Score - Baby B Total Score - Baby B: 8 - Total Score - Baby C Total Score - Baby C: 8 - Level of Risk - Baby A Level of Risk - Baby A: Medium (6-9) - Level of Risk - Baby B Level of Risk - Baby B: Medium (6-9) - Level of Risk - Baby C Level of Risk - Baby C: Medium (6-9) Physician Notification (Pre) - Physician Notified Physician Notified Date: 09/04/19 Physician Notified Time: 21:25 New Order Received: Yes - Notification Comment Comment: Orders given to give patient the option to stay for another hour and be rechecked or go home and come back when contractions are stronger. Disposition - Disposition OB Disposition: Discharge to home, Written follow up instructions reviewed Discharge Date: 09/04/19 Discharge Time: 21:29 I agree with the RN Medical Screening Exam: Yes Risk & Benefit of care provided described in d/c instruction: Yes Diagnosis: FALSE LABOR AT OR AFTER 37 COMPLETED WEEKS OF GESTATION
== END 2019-09-04 21:29 | disposition home or self-care (01) ==
LOC: FBPOP 20:00
PROVIDERS: ATTEND Obstetrics & Gynecology
DX: O47.1 False labor at or after 37 completed weeks of gestation (principal); Z3A.38 38 weeks gestation of pregnancy
CPT/HCPCS: 59025; 84112; G0463; 99213

== ENCOUNTER 2019-09-09 05:42 | Inpatient (IN) | payer OTHER ==
--- NOTE | 2019-09-08 10:27 | P.HPOB ---
History of Present Illness H&P Date: 09/08/19 Chief Complaint: Requested induction of labor. This patient is a pleasant 19 yr female EDC 09/12/2019 estimated gestational age 39 and 3/7 weeks who presents to L&D for requested induction of labor. care has been uncomplicated. Review of Systems Genitourinary: Reports Menstruation: Reports amenorrhea Past Medical History Past Medical History: No Reported History Additional Past Medical History / Comment(s): times 1 (boy) History of Any Multi-Drug Resistant Organisms: None Reported Past Surgical History: No Surgical Hx Reported Past Anesthesia/Blood Transfusion Reactions: No Reported Reaction Past Psychological History: No Psychological Hx Reported Smoking Status: Never smoker Past Alcohol Use History: None Reported Past Drug Use History: None Reported - Past Family History Mother Family Medical History: No Reported History Medications and Allergies Home Medications Medication Instructions Recorded Confirmed Type No Known Home Medications 08/29/19 09/04/19 History Allergies Allergy/AdvReac Type Severity Reaction Status Date / Time Penicillins Allergy Unknown Verified 09/04/19 20:05 Childhood Exam - OBG Physical Exam Abdomen: bowel sounds normal, no diffuse tenderness, no bruit present, no guarding noted, no hepatomegaly, no splenomegaly, no mass Vulva: both: normal Vagina: normal moisture, no discharge Cervix: no lesion (Cevix in the office 4-5 cm/soft/-2), no discharge Uterus: enlarged (Fundal height is 38cm.) Results bloodwork: A positive, Rubella Immune, [id number] neg, GBS negative, Glucola normal. Ultrasounds have been normal Assessment and Plan Assessment: This is a pleasant 19 yr old female 39 and 3/7 weeks gestation who is requesting induction of labor. Requests AROM and avoid Pitocin if possible, but if no labor after AROM understands need for augmentation. Anticipate . (1) 39 weeks gestation of Status: Acute Code(s): Z3A.39 - 39 WEEKS GESTATION OF SNOMED Code(s): 10360621 (2) Elective induction of labor planned Status: Acute Code(s): QQX2143 - SNOMED Code(s): 696477429
[2019-09-09] MEDS ORDERED: CARBOPROST TROMETHAMINE 250 MCG/ML 1 ML AMP IM PRN (05:51)
[2019-09-09] MEDS ORDERED: LACTATED RINGERS 1,000 ML IV SCH (05:51)
[2019-09-09] MEDS ORDERED: OXYTOCIN 10 UNIT/ML 1 ML VIAL IM PRN (05:51)
[2019-09-09] MEDS ORDERED: TERBUTALINE 1 MG/ML VIAL SQ PRN (05:51)
[2019-09-09] MEDS ORDERED: LIDOCAINE 0.5% (PF) 5 MG/ML (50 ML SDV) SQ PRN (05:51)
[2019-09-09] MEDS ORDERED: METHYLERGONOVINE 0.2 MG/ML 1 ML AMP IM PRN (05:51)
[2019-09-09 06:23] LABS: Basophils % (A) 0 %; Eosinophils # (A) 0.1 k/uL (0-0.7); Eosinophils % (A) 1 %; HCT 33.9 % (34.0-46.0); HGB 10.8 gm/dL (11.4-16.0); Hypochromasia Moderate; Lymphocytes # (A) 2.5 k/uL (1.0-4.8); Lymphocytes % (A) 22 %; MCH 25.7 pg (25.0-35.0); MCHC 31.8 g/dL (31.0-37.0); MCV 80.9 fL (80.0-100.0); Mean Platelet Volume 9.6; Monocytes # (A) 0.6 k/uL (0-1.0); Monocytes % (A) 5 %; Neutrophils # (A) 7.8 k/uL (1.3-7.7); Neutrophils % (A) 70 %; Platelet Count 287 k/uL (150-450); Poikilocytosis Slight; RBC 4.19 m/uL (3.80-5.40); RDW 14.8 % (11.5-15.5); WBC 11.2 k/uL (3.8-10.6)
[2019-09-09] MEDS ORDERED: diphenhydrAMINE 50 MG/ML 1 ML VIAL IVP PRN (08:05)
[2019-09-09] MEDS ORDERED: BISACODYL 10 MG SUPP RECTAL PRN (08:05)
[2019-09-09] MEDS ORDERED: LANOLIN CREAM 5 GM TUBE TOPICAL PRN (08:05)
[2019-09-09] MEDS ORDERED: OXYTOCIN 20 UNITS/1000 ML NS 1,000 ML IV SCH (08:05)
[2019-09-09] MEDS ORDERED: SIMETHICONE 80 MG CHEWABLE PO PRN (08:05)
[2019-09-09] MEDS ORDERED: HYDROCORTISONE 2.5% RECTAL CREAM 30 GM TUBE RECTAL PRN (08:05)
[2019-09-09] MEDS ORDERED: ACETAMINOPHEN TAB 325 MG TAB PO PRN (08:05)
[2019-09-09] MEDS ORDERED: BENZOCAINE/MENTHOL SPRAY 1 GM/SPRAY AEROSOL TOPICAL PRN (08:05)
[2019-09-09] MEDS ORDERED: ZOLPIDEM 5 MG TAB PO PRN (08:05)
[2019-09-09] MEDS ORDERED: diphenhydrAMINE 25 MG CAP PO PRN (08:05)
[2019-09-09] MEDS ORDERED: WITCH HAZEL 1 EACH MED..PAD TOPICAL PRN (08:05)
[2019-09-09] MEDS: IBUPROFEN 600 MG TAB PO PRN ×3 (08:52→20:44)
[2019-09-09] MEDS: SENNOSIDES-DOCUSATE SODIUM 1 EACH TAB PO SCH ×2 (13:21→20:44)
--- NOTE | 2019-09-09 18:41 | P.PROBDLV ---
Vaginal Delivery Note - . Vaginal Delivery Note: Normal vaginal delivery viable female Apgars are 8 and 9 delivery time is 0758 hrs. Please see dictated H&P for intimate details of this patient's admission. Brief summary this is a pleasant 19-year-old 2 para 1 female estimated gestational age 39-4/7 weeks who presents to labor and delivery for requested induction of labor. On admission patient is 6 cm dilated has artificial rupture membranes for clear fluid. Patient's labor progresses normally and she gets to complete. Patient pushes the head to the perineum. This time we do have some bradycardia to the 80s and 90s and therefore a midline episiotomy is made. At this time we have controlled delivery of the infant's head over the perineum. Mouth and nares are bulb suctioned. This infant is straight occiput posterior presentation. There is no evidence of a nuchal cord. gentle downward traction we then have delivery anterior and posterior shoulder and rest this infant's body. This is a vigorous viable female infant Apgars are 8 and 9 delivery time is 0758 hours. After delivery of the infant the umbilical cord is allowed to quit pulsating is then doubly clamped and cut. The placenta is then spontaneously delivered intact. Estimated blood loss is 100 mL. Inspection of perineum shows second-degree laceration was repaired with 3-0 Vicryl usual fashion excellent reapproximation is noted. All counts are correct 3. There are no complications. and mother stable delivery room.
[2019-09-10 04:24] VITALS: PULSE 69; TEMP 98
--- NOTE | 2019-09-10 05:43 | P.PNOBGVD ---
Subjective - Subjective Patient reports: Reports appetite normal, Reports voiding normally, Reports pain well controlled, Reports ambulating normally : doing well Objective - Latest Vital Signs Latest vital signs: Vital Signs Temp Pulse Resp BP Pulse Ox 09/10/19 04:00 98.0 F 69 18 113/52 09/10/19 00:00 98.4 F 77 18 113/68 09/09/19 20:00 98.0 F 65 18 113/68 09/09/19 15:51 78 16 121/74 09/09/19 12:00 98.2 F 92 16 118/68 09/09/19 10:11 99.1 F 104 H 16 114/67 09/09/19 09:41 116 H 16 121/71 09/09/19 09:11 107 H 16 122/70 09/09/19 08:56 97 16 124/70 09/09/19 08:41 100 16 116/64 09/09/19 08:26 103 H 16 125/72 09/09/19 08:11 97.0 F L 113 H 16 136/66 09/09/19 06:03 97.2 F L 100 16 132/87 100 Intake and Output 09/09/19 09/09/19 09/10/19 14:59 22:59 06:59 Output Total 150 Balance -150 Output: Estimated Blood Loss 150 Other: # Voids 1 3 - Exam Lungs: bilateral: normal Chest: Normal S1, Normal S2 Extremities: Present: normal Abdomen: Present: normal appearance, soft Uterus: Present: normal, firm - Labs Labs: Abnormal Lab Results - Last 24 Hours (Table) 09/09/19 Range/Units 06:00 WBC 11.2 H (3.8-10.6) k/uL Hgb 10.8 L (11.4-16.0) gm/dL Hct 33.9 L (34.0-46.0) % Neutrophils # 7.8 H (1.3-7.7) k/uL Assessment and Plan Assessment: day #1. Patient is resting without complaints wishes to go home. Vital signs are stable she's afebrile. Uterus is firm nontender she's having normal lochia. My impression this is a normal course. Plan is to continue routine care discharge home later today (1) 39 weeks gestation of Current Visit: No Status: Acute Code(s): Z3A.39 - 39 WEEKS GESTATION OF SNOMED Code(s): 61474719 (2) Elective induction of labor planned Current Visit: No Status: Acute Code(s): [id number] - SNOMED Code(s): 083616200
--- NOTE | 2019-09-10 05:46 | P.DS ---
Providers Date of admission: 09/09/19 05:42 Expected date of discharge: 09/10/19 Attending physician: Sathish Valdivia Primary care physician: Stated None - Discharge Diagnosis(es) (1) 39 weeks gestation of Current Visit: No Status: Acute (2) Elective induction of labor planned Current Visit: No Status: Acute Hospital Course: Please see dictated H&P for intimate details of this patient's admission. Brief summary this is a pleasant 19-year-old 2 para 1 female 39-4/7 weeks who is admitted to labor and delivery for requested induction of labor. Patient's induction of labor quickly goes on have vaginal delivery viable female . Please see dictated delivery note. day #1 this patient is without complaints wishes to go home. Patient's felt stable for discharge home follow up with me in 6 weeks. Procedures: Induction of labor and normal vaginal delivery Patient Condition at Discharge: Good Plan - Discharge Summary New Discharge Prescriptions: New Ibuprofen [Motrin] 600 mg PO Q6HR PRN #30 tab PRN Reason: Mild Pain Or Fever >= 100.5 Discharge Medication List Ibuprofen [Motrin] 600 mg PO Q6HR PRN #30 tab 09/10/19 [Rx] Follow up Appointment(s)/Referral(s): Sathish Valdivia MD [STAFF PHYSICIAN] - 10/22/19 8:30 am Patient Instructions/Handouts: Vaginal Delivery (DC) Activity/Diet/Wound Care/Special Instructions: No intercourse or anything per vagina for 6 weeks. Please call if any fever, chills, excessive vaginal bleeding, and/or abdominal pain Discharge Disposition: HOME SELF-CARE
[2019-09-10] MEDS: IBUPROFEN 600 MG TAB PO PRN (05:49)
[2019-09-10] MEDS: SENNOSIDES-DOCUSATE SODIUM 1 EACH TAB PO SCH (07:50)
[2019-09-10 08:56] VITALS: BP 110/75; RESP 16
== END 2019-09-10 10:20 | disposition home or self-care (01) | DRG 807 ==
LOC: 4FBP 05:42
PROVIDERS: ADMIT Obstetrics & Gynecology; ATTEND Obstetrics & Gynecology
PROC: 10907ZC Drainage of Amniotic Fluid, Therapeutic from Products of Conception, Via Natural or Artificial Opening (ICD-10-PCS; principal; 2019-09-09)
PROC: 0KQM0ZZ Repair Perineum Muscle, Open Approach (ICD-10-PCS; principal; 2019-09-09)
PROC: 10E0XZZ Delivery of Products of Conception, External Approach (ICD-10-PCS; principal; 2019-09-09)
DX: O76 Abnormality in fetal heart rate and rhythm complicating labor and delivery (principal); Z37.0 Single live birth; O70.1 Second degree perineal laceration during delivery; Z3A.39 39 weeks gestation of pregnancy
CPT/HCPCS: 85025; 86850; 86900; 86901

== ENCOUNTER → 2020-09-06 | Outpatient (CLI) | payer OTHER ==
--- NOTE | 2020-09-07 07:04 | US ---
EXAMINATION TYPE: Transabdominal DATE OF EXAM: 09/06/2020 4:26 PM COMPARISON: NONE CLINICAL HISTORY: Z36 Less than 14 weeks. Confirm dates EXAM PERFORMED: Transabdominal (TA) EXAM MEASUREMENTS: GESTATIONAL AGE / DATING Physician Established: (11 weeks/5 days) EDC: 03/23/2021 Dates by LMP: (11 weeks/5 days) EDC: 03/23/2021 Dates by First Scan: No previous this is first scan Dates by Current Scan for: (12 weeks/1 days) EDC: 03/20/2021 MATERNAL ANATOMY Uterus: 13.2 x 7.2 x 8.1cm Right Ovary: 3.9 x 2.5 x 2.7cm Left Ovary: 3.4 x 1.5 x 1.9cm Post CDS / Adnexa: wnl Presence of free fluid: no Presence of corpus luteal cyst: right ovary: 2.5 x 2.1 x 2.0cm Presence of subchorionic bleed: no GESTATION / SURVEY CRL: 5.5cm (12 weeks/1 days) Yolk Sac (normal less than 6mm): 2.8mm Heart Rate: 156 bpm Rhythm: Normal IUP: Viable IUP Nuchal Translucency 10-14wks (normal less than 3mm): 1.9mm Date of LMP: 06/16/2020 Beta HcG (if available): Not available at time of exam. IMPRESSION: Viable 12 weeks 1 day with a heart rate of 156 bpm
== END ==
LOC: RADUSWWP 15:52
PROVIDERS: ATTEND Obstetrics & Gynecology
DX: O36.80X0 Pregnancy with inconclusive fetal viability, not applicable or unspecified (principal); Z3A.12 12 weeks gestation of pregnancy
CPT/HCPCS: 76801; 76813

== ENCOUNTER 2021-03-07 19:52 | Outpatient (CLI) | payer OTHER ==
[2021-03-07 21:09] VITALS: BP 131/79; PULSE 114; RESP 16; TEMP 97.5
--- NOTE | 2021-03-16 13:10 | P.MSEPDOC ---
Presenting Problems - Arrival Data Date of Arrival on Unit: 03/07/21 Time of Arrival on Unit: 19:52 Mode of Transport: Ambulatory - Complaint OB-Reason for Admission/Chief Complaint: Possible Onset of Labor Comment: Patient presents to triage with contractions that have been going on for the last week, but today they are stronger with some of them being "6 minutes apart." Patient states she has had a headache all day and is seeing spots. Medical History - Information : 3 Para: 2 Term: 2 : 0 Abortions: Spontaneous or Elective: 0 Number of Living Children: 2 - Gestational Age Gestational Age by DINO (wks/days): 37 Weeks and 5 Days Review of Systems - Review of Systems Constitutional: No problems Breast: No problems ENT: No problems Cardiovascular: No problems Respiratory: No problems Gastrointestinal: No problems Genitourinary: No problems Musculoskeletal: No problems Neurological: No problems Skin: No problems Vital Signs - Temperature Temperature: 97.5 F - Pulse Pulse Oximetery Pulse Rate: 114 Pulse Assessment Method: Automatic Cuff - Respirations Respiratory Rate: 16 Oxygen Delivery Method: Room Air - Blood Pressure Sitting Blood Pressure: 131/79 Blood Pressure Mean: 96 Blood Pressure Source: Automatic Cuff Medical Screen Scoring - Cervical Exam Dilation (cm): 3.5 Effacement (%): 50 Station: -2 Membranes: Intact - Uterine Contractions Frequency From (mins): 6 Frequency To (mins): 10 Duration From (seconds): 50 Duration To (seconds): 80 Resting: Soft to palpation - Assessment - Baby A Baseline FHR: 135 Heart Rate - NICHD Category: Category I (Normal) NST: Reactive Physician Notification - Physician Notified Physician Notified Date: 03/07/21 Physician Notified Time: 20:18 Physician: Bria Torres New Order Received: Yes - Notification Comment Comment: Orderes given to discharge patient home with instructions, patient to keep regularly scheduled appt with Dr. Valdivia for tomorrow. Maternal Triage Index - Non-Urgent/Priority 4 Non-Urgent Priority 4: Yes Criteria Met for Priority 4: 37 6/7 presents with irregular contractions, cervix remains unchanged from last friday with Dr. Valdivia Patient complains of a headache and seeing spots, blood pressures within normal limits, reflexes 2+, clonus absent, no swelling noted. Disposition - Disposition OB Disposition: Discharge to home, Written follow up instructions reviewed Discharge Date: 03/07/21 Discharge Time: 20:35 I agree with the RN Medical Screening Exam: Yes Case reviewed; plan agreed upon as documented in EMR&OBIX.: Yes Diagnosis: FALSE LABOR BEFORE 37 COMPLETED WEEKS OF GEST, THIRD TRI
== END 2021-03-07 20:35 | disposition home or self-care (01) ==
LOC: FBPOP 19:52
PROVIDERS: ATTEND Obstetrics & Gynecology
DX: O47.03 False labor before 37 completed weeks of gestation, third trimester (principal); Z3A.37 37 weeks gestation of pregnancy
CPT/HCPCS: 59025; G0463; 99213

== ENCOUNTER 2021-03-19 05:38 | Inpatient (IN) | payer OTHER ==
[2021-03-19] MEDS ORDERED: LACTATED RINGERS 1,000 ML IV SCH (05:46)
[2021-03-19] MEDS ORDERED: METHYLERGONOVINE 0.2 MG/ML 1 ML AMP IM PRN (05:46)
[2021-03-19] MEDS ORDERED: LIDOCAINE 0.5% (PF) 5 MG/ML (50 ML SDV) SQ PRN (05:46)
[2021-03-19] MEDS ORDERED: TERBUTALINE 1 MG/ML VIAL SQ PRN (05:46)
[2021-03-19] MEDS ORDERED: OXYTOCIN 30 UNITS/500 ML NS 30 UNIT in SALINE 1 500ML.BAG IV SCH (05:46)
[2021-03-19] MEDS ORDERED: CARBOPROST TROMETHAMINE 250 MCG/ML 1 ML AMP IM PRN (05:46)
[2021-03-19] MEDS ORDERED: OXYTOCIN 10 UNIT/ML 1 ML VIAL IM PRN (05:46)
--- NOTE | 2021-03-19 06:34 | P.HPOB ---
History of Present Illness H&P Date: 03/19/21 Chief Complaint: Requested induction This patient is a pleasant 20-year-old 3 para 2 female estimated date of confinement 03/23/2021 estimated gestational age 39-3/7 weeks who presents to labor and delivery for requested induction of labor. Patient's care h as been uncomplicated. Patient is uncomfortable now requesting induction of labor. Review of Systems Genitourinary: Reports Menstruation: Reports amenorrhea Past Medical History Past Medical History: No Reported History Additional Past Medical History / Comment(s): times 2 (boy+girl) History of Any Multi-Drug Resistant Organisms: None Reported Past Surgical History: No Surgical Hx Reported Past Anesthesia/Blood Transfusion Reactions: No Reported Reaction Past Psychological History: No Psychological Hx Reported Smoking Status: Never smoker Past Alcohol Use History: None Reported Past Drug Use History: None Reported - Past Family History Mother Family Medical History: No Reported History Medications and Allergies Home Medications Medication Instructions Recorded Confirmed Type Pnv,Calcium 72/Iron/Folic Acid 1 each PO DAILY 03/07/21 03/19/21 History [ Plus Tablet] Allergies Allergy/AdvReac Type Severity Reaction Status Date / Time Penicillins Allergy Unknown Verified 03/07/21 20:07 Childhood Exam Vital Signs Temp Pulse Resp BP Pulse Ox 03/19/21 05:46 97.9 F 100 16 126/74 100 Intake and Output 03/18/21 03/18/21 03/19/21 14:59 22:59 06:59 Other: # Voids 1 Weight 87.997 kg - OBG Physical Exam Abdomen: bowel sounds normal, no diffuse tenderness, no bruit present, no guarding noted, no hepatomegaly, no splenomegaly, no mass Vulva: both: normal Vagina: normal moisture, no discharge Cervix: no lesion (Cervix is 5/80% -2 station.), no discharge Uterus: enlarged Results blood work shows she is A positive, rubella immune, RPR nonreactive, hepatitis B negative, HIV is nonreactive, Glucola was normal, group B strep was negative, ultrasounds have shown normal growth and anatomy. Assessment and Plan Assessment: This is a pleasant 20-year-old 3 para 2 female 39-3/7 weeks gestation admitted to labor and delivery for requested induction of labor. Plan is artificial rupture membranes and patient does want to wait on Pitocin because in the past that's all that she is required to be induced. Anticipate vaginal delivery. (1) 39 weeks gestation of Current Visit: No Status: Acute Code(s): Z3A.39 - 39 WEEKS GESTATION OF SNOMED Code(s): 18416203 (2) Elective induction of labor planned Current Visit: No Status: Acute Code(s): [id number] - SNOMED Code(s): 713750623
[2021-03-19 06:35] LABS: Anisocytosis Slight; Basophils # (A) 0.1 k/uL (0-0.2); Basophils % (A) 1 %; Eosinophils # (A) 0.1 k/uL (0-0.7); Eosinophils % (A) 1 %; HGB 10.2 gm/dL (11.4-16.0); Hypochromasia Slight; Lymphocytes # (A) 2.1 k/uL (1.0-4.8); Lymphocytes % (A) 21 %; MCH 24.8 pg (25.0-35.0); MCHC 31.8 g/dL (31.0-37.0); Mean Platelet Volume 8.1; Microcytosis Slight; Monocytes # (A) 0.4 k/uL (0-1.0); Monocytes % (A) 4 %; Neutrophils # (A) 6.8 k/uL (1.3-7.7); Neutrophils % (A) 71 %; Platelet Count 213 k/uL (150-450); Poikilocytosis Slight; RDW 16.6 % (11.5-15.5); WBC 9.6 k/uL (3.8-10.6)
[2021-03-19] MEDS ORDERED: BUTORPHANOL 1 MG/ML 1 ML VIAL IV PRN (09:03)
[2021-03-19] MEDS ORDERED: HYDROCORTISONE 2.5% RECTAL CREAM 30 GM TUBE RECTAL PRN (09:43)
[2021-03-19] MEDS ORDERED: ZOLPIDEM 5 MG TAB PO PRN (09:43)
[2021-03-19] MEDS ORDERED: BENZOCAINE/MENTHOL SPRAY 1 GM/SPRAY AEROSOL TOPICAL PRN (09:43)
[2021-03-19] MEDS ORDERED: bisacodyL 10 MG SUPP RECTAL PRN (09:43)
[2021-03-19] MEDS ORDERED: LANOLIN CREAM 5 GM TUBE TOPICAL PRN (09:43)
[2021-03-19] MEDS ORDERED: diphenhydrAMINE 25 MG CAP PO PRN (09:43)
[2021-03-19] MEDS ORDERED: SENNOSIDES-DOCUSATE SODIUM 1 EACH TAB PO PRN (09:43)
[2021-03-19] MEDS ORDERED: ACETAMINOPHEN TAB 325 MG TAB PO PRN (09:43)
[2021-03-19] MEDS ORDERED: diphenhydrAMINE 50 MG/ML 1 ML VIAL IVP PRN (09:43)
[2021-03-19] MEDS ORDERED: SIMETHICONE 80 MG CHEWABLE PO PRN (09:43)
[2021-03-19] MEDS: OXYTOCIN 30 UNITS/500 ML NS 30 UNIT in SALINE 1 500ML.BAG IV SCH ×2 (09:52→09:57)
[2021-03-19] MEDS: IBUPROFEN 600 MG TAB PO PRN ×3 (09:57→21:40)
--- NOTE | 2021-03-19 12:45 | P.PROBDLV ---
Vaginal Delivery Note - . Vaginal Delivery Note: Normal spontaneous vaginal delivery viable male infant Apgars 9 and 9 delivery time was 0925 hrs. Please see dictated H&P for intimate details of this patient's admission. Brief summary this is a pleasant 20-year-old 3 para 2 female 39-3/7 weeks gestation is admitted to labor and delivery requesting induction of labor. On admission patient is 5 cm dilated has artificial rupture membranes for clear fluid. Labor per seed's on its own at this time and she quickly gets to complete. Patient does not get anything for pain control. Patient pushes approximately 2 or 3 contractions and pushes the head to the perineum. Posterior perineum was supported and we have controlled delivery of infant's head over the intact perineum. Infant's position straight occiput posterior presentation. Mouth and nares are bulb suctioned. There is no evidence of a nuchal cord. With gentle downward traction we then have deliver the anterior posterior shoulder and rest this infant's body. This is a vigorous viable male infant Apgars are 9 and 9 delivery time was 0925 hrs. After delivery of the the infant is late on the mother's abdomen and after the cord is done pulsating is doubly clamped and cut. It appears to be trivascular. The placenta is then spontaneously delivered intact. Estimated blood loss is approximately 200 mL. There is a first-degree posterior laceration which repaired with 3-0 Vicryl usual fashion excellent reapproximation is noted. All counts are correct 3. There are no complications. Infant and mother are stable delivery room.
[2021-03-20 04:17] VITALS: RESP 16
[2021-03-20] MEDS: IBUPROFEN 600 MG TAB PO PRN (05:15)
--- NOTE | 2021-03-20 06:26 | P.PNOBGVD ---
Subjective - Subjective Patient reports: Reports appetite normal, Reports voiding normally, Reports pain well controlled, Reports ambulating normally : doing well Objective - Latest Vital Signs Latest vital signs: Vital Signs Temp Pulse Resp BP Pulse Ox 03/20/21 04:00 97.9 F 64 16 130/75 03/20/21 00:00 98.0 F 66 18 130/78 03/19/21 20:00 98.8 F 68 18 123/80 03/19/21 16:00 98.3 F 74 16 113/70 98 03/19/21 11:39 98.2 F 85 16 118/73 03/19/21 11:09 77 16 115/72 03/19/21 10:39 76 16 110/63 03/19/21 10:24 88 16 113/68 03/19/21 10:12 85 16 115/64 03/19/21 09:54 86 16 112/69 03/19/21 09:39 98.2 F 102 H 16 129/82 Intake and Output 03/19/21 03/19/21 03/20/21 14:59 22:59 06:59 Intake Total 27.833 Balance 27.833 Intake: Intake, IV Titration 27.833 Amount Oxytocin 30 Units/500 ml 27.833 Ns 30 unit In Saline 1 500ml.bag @ Per Protocol IV .Q0M [facility] Rx#:[id number] Other: # Voids 1 1 2 - Exam Lungs: bilateral: normal Chest: Normal S1, Normal S2 Extremities: Present: normal Abdomen: Present: normal appearance, soft Uterus: Present: normal, firm - Labs Labs: Abnormal Lab Results - Last 24 Hours (Table) 03/19/21 Range/Units 06:07 Hgb 10.2 L (11.4-16.0) gm/dL Hct 32.0 L (34.0-46.0) % MCV 78.0 L (80.0-100.0) fL MCH 24.8 L (25.0-35.0) pg RDW 16.6 H (11.5-15.5) % Assessment and Plan Assessment: day #1. Patient is resting without complaints wishes to go home. Vital signs are stable and she is afebrile. Uterus is firm nontender she's having normal lochia. My impression is this is a normal course. Plan is to continue routine care and discharge home later today. (1) 39 weeks gestation of Current Visit: No Status: Acute Code(s): Z3A.39 - 39 WEEKS GESTATION OF SNOMED Code(s): 22796839 (2) Elective induction of labor planned Current Visit: No Status: Acute Code(s): [id number] - SNOMED Code(s): 332944790
--- NOTE | 2021-03-20 06:30 | P.DS ---
Providers Date of admission: 03/19/21 05:38 Expected date of discharge: 03/20/21 Attending physician: Sathish Valdivia Primary care physician: Stated None - Discharge Diagnosis(es) (1) 39 weeks gestation of Current Visit: No Status: Acute (2) Elective induction of labor planned Current Visit: No Status: Acute Hospital Course: Please see dictated H&P for intimate details of this patient's admission. Brief summary this is a pleasant 20-year-old 3 para 2 female 39-3/7 weeks admitted to labor and delivery requesting induction of labor. Patient is artificial rupture membranes quickly goes on have a vaginal delivery viable male infant. Please see dictated delivery note. day #1 patient wishes to go home felt be stable for discharge home follow up with me in 6 weeks. Procedures: Induction of labor and normal vaginal delivery Patient Condition at Discharge: Good Plan - Discharge Summary Discharge Rx Participant: No New Discharge Prescriptions: New Ibuprofen [Motrin] 600 mg PO Q6HR PRN #30 tab PRN Reason: Pain No Action Pnv,Calcium 72/Iron/Folic Acid [ Plus Tablet] 1 each PO DAILY Discharge Medication List Pnv,Calcium 72/Iron/Folic Acid [ Plus Tablet] 1 each PO DAILY 03/07/21 [History] Ibuprofen [Motrin] 600 mg PO Q6HR PRN #30 tab 03/20/21 [Rx] Follow up Appointment(s)/Referral(s): Sathish Valdivia MD [STAFF PHYSICIAN] - 05/03/21 10:15 am Patient Instructions/Handouts: Vaginal Delivery (DC) Activity/Diet/Wound Care/Special Instructions: No intercourse or anything per vagina for 6 weeks. Please call if any fever, chills, excessive vaginal bleeding, and/or abdominal pain. Discharge Disposition: HOME SELF-CARE
[2021-03-20 08:52] VITALS: BP 118/69; PULSE 74; TEMP 98
== END 2021-03-20 10:50 | disposition home or self-care (01) | DRG 807 ==
LOC: 4FBP 05:38
PROVIDERS: ADMIT Obstetrics & Gynecology; ATTEND Obstetrics & Gynecology
PROC: 10E0XZZ Delivery of Products of Conception, External Approach (ICD-10-PCS; principal; 2021-03-19)
PROC: 10907ZC Drainage of Amniotic Fluid, Therapeutic from Products of Conception, Via Natural or Artificial Opening (ICD-10-PCS; 2021-03-19)
PROC: 0HQ9XZZ Repair Perineum Skin, External Approach (ICD-10-PCS; 2021-03-19)
DX: O70.0 First degree perineal laceration during delivery (principal); Z37.0 Single live birth; Z3A.39 39 weeks gestation of pregnancy
CPT/HCPCS: 85025; 86850; 86900; 86901